=== PATIENT | female | born 1990 | race Caucasian/White ===

== ENCOUNTER 2024-04-24 17:52 | Inpatient (IN) | payer OTHER ==
[~2024-04-24] VITALS: Ht 172.7 cm; Wt 92.5 kg
[~2024-04-24 17:52] MED LIST: IBUP800 PO
[2024-04-24 18:21] LABS: BASOPHILS ABSOLUTE AUTO 0.05 K/mm3 (0.00-0.23); BASOPHILS PERCENT AUTO 0 % (0-2); EOSINOPHILS ABSOLUTE AUTO 0.05 K/mm3 (0.00-0.68); EOSINOPHILS PERCENT AUTO 0 % (0-6); Hematocrit 42.6 % (33.0-51.0); IMMATURE GRAN ABSOLUTE AUTO 0.12 K/mm3 (0.00-0.10); IMMATURE GRAN PERCENT AUTO 1 % (0-1); LYMPHOCYTES ABSOLUTE AUTO 0.74 K/mm3 (0.84-5.20); LYMPHOCYTES PERCENT AUTO 5 % (21-46); MONOCYTES ABSOLUTE AUTO 0.37 K/mm3 (0.16-1.47); MONOCYTES PERCENT AUTO 3 % (4-13); Mean Corpuscular HGB 36.4 pg (26.0-34.0); Mean Corpuscular HGB Conc 35.2 g/dL (31.5-36.5); Mean Corpuscular Volume 103 fL (80-100); Mean Platelet Volume 9.4 fL (9.1-12.4); NEUTROPHILS ABSOLUTE AUTO 13.19 K/mm3 (1.96-9.15); NEUTROPHILS PERCENT AUTO 91 % (41-73); Platelet Count 204 K/mm3 (150-400); RDW Coefficient Variation 12.6 % (11.7-14.2); RDW Standard Deviation 48.2 fL (35.1-46.3); Red Blood Cell Count 4.12 M/mm3 (3.80-5.20); White Blood Cell Count 14.52 K/mm3 (4.00-11.30)
[2024-04-24 18:48] LABS: Albumin, Blood 3.5 g/dL (3.4-5.0); Albumin/Globulin Ratio 0.8 (0.8-1.8); Bilirubin, Total 2.1 mg/dL (0.1-1.0); Bun/Creatinine Ratio 6.3 (12.0-20.0); Calcium, Blood 8.5 mg/dL (8.5-10.1); Creatinine, Blood 0.47 mg/dL (0.40-1.00); Globulin, Blood 4.5 g/dL (2.2-4.0); Potassium, Blood 3.4 mmol/L (3.5-5.5)
[2024-04-24] MEDS ORDERED: CefTRIAXone Sodium 1,000 MG in NS 50 ML IV ONE (21:20)
[2024-04-24] MEDS ORDERED: Azithromycin 500 MG in NS 250 ML IV ONE (21:20)
[2024-04-24] MEDS ORDERED: NS 1,000 ML IV SCH ×2 (21:20→23:20)
[2024-04-24] MEDS ORDERED: Ondansetron HCl 2 MG / ML 2ML Vial IV ONE (21:30)
[2024-04-24] MEDS ORDERED: Ketorolac Tromethamine 30mg Vial IV ONE (21:30)
[2024-04-24] MEDS ORDERED: Acetaminophen 325 MG TABLET PO ONE (23:50)
[2024-04-25] MEDS ORDERED: Acetaminophen 325 MG TABLET PO PRN (01:50)
[2024-04-25] MEDS ORDERED: NS 1,000 ML IV ONE (01:55)
[2024-04-25 02:58] LABS: Source, Urine Clean Catch
[2024-04-25 03:00] LABS: Bilirubin, Urine Neg (Neg); Blood, Urine 1+ (Neg); Glucose Qualitative, Urine Neg (Neg); Ketones, Urine 1+ (Neg); Leukocyte Esterase, Urine Neg (Neg); Nitrite, Urine Neg (Neg); Protein, Urine Neg (Neg); Urobilinogen, Urine NORM (Normal); pH, Urine 6.5 (5.0-8.0)
[2024-04-25 03:06] LABS: Appearance, Urine Clear (Clear); Color, Urine Yellow (P-Yellow)
[2024-04-25 03:07] LABS: Bacteria Not Seen /hpf; Red Blood Cells, Urine 0-2 /hpf (0-2); Squamous Epithelial Cells Rare /hpf (Few); White Blood Cells, Urine Not Seen /hpf (0-5)
[2024-04-25 03:38] LABS: Influenza A, PCR NEGATIVE (NEGATIVE); Influenza B, PCR NEGATIVE (NEGATIVE); Resp Syncytial Virus, PCR NEGATIVE (NEGATIVE); SARS-Cov-2 (COVID-19) PCR, MMC NEGATIVE (NEGATIVE)
[2024-04-25 04:07] LABS: Hematocrit 37.2 % (33.0-51.0); Hemoglobin 12.8 g/dL (11.5-16.0); Mean Corpuscular HGB 36.3 pg (26.0-34.0); Mean Corpuscular HGB Conc 34.4 g/dL (31.5-36.5); Mean Corpuscular Volume 105 fL (80-100); Mean Platelet Volume 10.2 fL (9.1-12.4); Platelet Count 180 K/mm3 (150-400); RDW Coefficient Variation 12.6 % (11.7-14.2); RDW Standard Deviation 49.3 fL (35.1-46.3); Red Blood Cell Count 3.53 M/mm3 (3.80-5.20); White Blood Cell Count 14.39 K/mm3 (4.00-11.30)
[2024-04-25 04:31] LABS: Bun/Creatinine Ratio 10.3 (12.0-20.0); Calcium, Blood 7.4 mg/dL (8.5-10.1); Creatinine, Blood 0.49 mg/dL (0.40-1.00); Potassium, Blood 3.9 mmol/L (3.5-5.5)
[2024-04-25 04:40] LABS: BAND PERCENT MAN 15 % (0-8); BASOPHILS PERCENT MAN 0 % (0-2); EOSINOPHILS PERCENT MAN 0 % (0-6); LYMPHOCYTES ABSOLUTE MAN 0.71 K/mm3 (0.84-5.20); LYMPHOCYTES PERCENT MAN 5 % (21-46); METAMYELOCYTE ABSOLUTE MAN 0.14 K/mm3 (0.00-0.00); METAMYELOCYTE PERCENT MAN 1 % (0-0); MONOCYTES ABSOLUTE MAN 0.14 K/mm3 (0.16-1.47); MONOCYTES PERCENT MAN 1 % (4-13); NEUTROPHILS ABSOLUTE MAN 13.38 K/mm3 (1.96-9.15); SEG NEUTROPHILS PERCENT MAN 78 % (41-73); TOTAL CELLS COUNTED 100
[2024-04-25 08:04] VITALS: BP 157/110
--- NOTE | 2024-04-25 08:06 | NUR ---
0804- PT ARRIVED TO PCU FLOOR IN STABLE CONDITION ON RA AFTER RECEIVING REPORT FROM [facility] SPECIALISTS[facility]URAG MCDONALD.
[2024-04-25] MEDS ORDERED: Lactobacil 2-S.Thermo-Bifido 1 1 Cap PO SCH (09:00)
[2024-04-25] MEDS ORDERED: Enoxaparin 40 MG/0.4 ML SYR SC SCH (09:00)
[2024-04-25] MEDS ORDERED: CefTRIAXone Sodium 1,000 MG in NS 100 ML IV SCH (09:00)
[2024-04-25 11:47] VITALS: BP 147/103
[2024-04-25 15:35] VITALS: BP 160/111
--- NOTE | 2024-04-25 16:20 | NUR ---
0727- THIS RN CALLED DR. DOBSON AND NOTIFIED HER PT HAS POSITIVE BLOOD CULTURES. BLOOD CX SHOW GRAM + COCCI IN CHAINS. AWARE.
[2024-04-25] MEDS ORDERED: Vancomycin HCL 1,000 MG in NS 250 ML IV ONE (16:50)
--- NOTE | 2024-04-25 16:50 | NUR ---
SUMMARY- PT AAOX4 THIS SHIFT. IND IN ROOM. MODERATE APPETITE. PT ON RA ALL SHIFT. NO ACUTE EVENTS. NSR ON TELE. PT MEDICATED WITH TYLENOL FOR MIN-MOD LEFT LOWER RIB PAIN.
[2024-04-25 19:34] VITALS: BP 144/110
[2024-04-26] VITALS (11 sets, daily range): BP systolic 129–169; BP diastolic 96–123
[2024-04-26 04:39] LABS: BASOPHILS ABSOLUTE AUTO 0.05 K/mm3 (0.00-0.23); BASOPHILS PERCENT AUTO 0 % (0-2); EOSINOPHILS ABSOLUTE AUTO 0.09 K/mm3 (0.00-0.68); EOSINOPHILS PERCENT AUTO 1 % (0-6); Hematocrit 38.8 % (33.0-51.0); Hemoglobin 13.5 g/dL (11.5-16.0); IMMATURE GRAN ABSOLUTE AUTO 0.08 K/mm3 (0.00-0.10); IMMATURE GRAN PERCENT AUTO 1 % (0-1); LYMPHOCYTES ABSOLUTE AUTO 1.42 K/mm3 (0.84-5.20); LYMPHOCYTES PERCENT AUTO 11 % (21-46); MONOCYTES ABSOLUTE AUTO 0.38 K/mm3 (0.16-1.47); MONOCYTES PERCENT AUTO 3 % (4-13); Mean Corpuscular HGB 36.8 pg (26.0-34.0); Mean Corpuscular HGB Conc 34.8 g/dL (31.5-36.5); Mean Corpuscular Volume 106 fL (80-100); Mean Platelet Volume 10.7 fL (9.1-12.4); NEUTROPHILS ABSOLUTE AUTO 10.61 K/mm3 (1.96-9.15); NEUTROPHILS PERCENT AUTO 84 % (41-73); Platelet Count 182 K/mm3 (150-400); RDW Coefficient Variation 12.4 % (11.7-14.2); RDW Standard Deviation 48.7 fL (35.1-46.3); Red Blood Cell Count 3.67 M/mm3 (3.80-5.20); White Blood Cell Count 12.63 K/mm3 (4.00-11.30)
--- NOTE | 2024-04-26 05:04 | NUR ---
End of shift summary No acute events overnight. PT slept through majority of shift. Rouses easily to verbal stimule and interacting appropriately. Pt on room air, lung sounds coarse. PT has occassional cough. O2 sats >95% on room air. Hr 80s and NSR via continuous monitor. BP elavated- systolic 140s. PT repositioned self and ambulated to restroom independently w/ steady gait. Call light w/ in reach and pt has been using appropriately. Plan of care ongoing.
[2024-04-26 05:08] LABS: Albumin, Blood 2.5 g/dL (3.4-5.0); Albumin/Globulin Ratio 0.7 (0.8-1.8); Bilirubin, Total 0.8 mg/dL (0.1-1.0); Calcium, Blood 7.6 mg/dL (8.5-10.1); Creatinine, Blood 0.44 mg/dL (0.40-1.00); Globulin, Blood 3.8 g/dL (2.2-4.0); Potassium, Blood 3.5 mmol/L (3.5-5.5); Total Protein, Blood 6.3 g/dL (6.4-8.2)
[2024-04-26] MEDS ORDERED: NS 250 ML IV PRN (05:35)
[2024-04-26] MEDS ORDERED: Azithromycin 500 MG in NS 250 ML IV SCH (06:00)
--- NOTE | 2024-04-26 07:45 | NUR ---
INITIAL ASSESSMENT: Patient is awake lying in bed watching TV. She is alert and oriented x4. She denies pain at this time, she states she just has rib pain when she is coughing-she states this is relieved with Tylenol. HRR, SR in the 80s, she is hypertensive 150s/100s, she states this has been a chronic issue but she doesn't take anything for it at home. LS DIM with EXP wheezing in the upper lobes, she is 96% on RA. She is 1PPD smoker, she denies wanting a nicotine patch at this time. BT+. PPP. AM meds and IV ABX given at this time. She denies other needs, call light in reach.
[2024-04-26] MEDS ORDERED: Nicotine 21 MG PATCH TOP SCH (12:00)
[2024-04-26] MEDS ORDERED: HydroCHLOROthiazide 25 mg Tab PO SCH (12:00)
[2024-04-26] MEDS ORDERED: Potassium Chloride 20 MEQ/15 ML UDC PO ONE (12:55)
[2024-04-26] MEDS ORDERED: Furosemide 10 MG / ML 2ML Vial IV STA (16:24)
--- NOTE | 2024-04-26 17:56 | NUR ---
Summary: Patient has been alert and oriented x4, T/O the shift. No C/O pain. HRR, she has been SR in gthe 70s-80s. She has been hypertensive for the majority of the shift with her systolic pressure 150s-160s and her diastolic 100-120s. She recieved HCTZ and a one time dose of Lasix. LS DIM, coarse with EXP wheezing in the upper lobes, she has been mid to high 90s on RA. She has a coarse PC with sam sputum. BT+. PPP. Another round of BC drawm this shift. She has been IND in the room. No other acute changes this shift. Will report to oncoming RN.
[2024-04-26] MEDS ORDERED: HydrALAZINE HCl 20 MG / ML 1ML Vial IV PRN (18:05)
--- NOTE | 2024-04-26 23:22 | NUR ---
ASSUMED CARE AT 1900 PT AWAKE, SITTING UP IN BED WITH FAMILY AT BEDSIDE. SHE STATES THAT SHE IS FEELING MUCH BETTER TODAY. SHE IS A/O X4 AND APPROPRIATE WITH STAFF AND FAMILY. AFEBRILE. SPO2 >98% ON RA; PRODUCTIVE COUGH NOTED; PT STATES THAT PAIN IN CHEST IS IMPROVING AND DOES NOT NEED TYLENOL TO MANAGE. BP ELEVATED DURING REPORT (169/120) AND PRN HYDRALAZINE GIVEN AND HELPFUL. SHE CAN SAFELY AMBULATE TO BATHROOM. SALINE LOCKED. SEE SHIFT ASSESSMENT FOR FULL ASSESSMENT.
--- NOTE | 2024-04-26 23:30 | NUR ---
TX TO 325 REPORT CALLED TO LEONARD OSBORN.
--- NOTE | 2024-04-27 00:23 | NUR ---
TRANSFER NOTE PT ARRIVED TO FLOOR VIA WC. HANDOFF RECEIVED FROM [facility] PARAEDUCATORANURAG BECK. PT ORIENTED TO UNIT. PERSONAL POSSESSIONS WITH PT.
[2024-04-27 02:44] VITALS: BP 137/115
--- NOTE | 2024-04-27 04:04 | NUR ---
SHIFT SUMMARY TRANSFERED FROM PCU THIS SHIFT. ADMITTED FOR PNEUMONIA/SEPSIS. FULL CODE. IV ANTIB ARE SCHEDULED. SHE IS ON RA, INDEPENDENT IN ROOM. A&O X4. REGULAR DIET. NICOTINE PATCH IN PLACE. PRN APRESOLINE GIVEN FOR HTN. NEWEST BLOOD CULTURES PENDING.
[2024-04-27 04:20] VITALS: BP 139/99
[2024-04-27 06:14] LABS: Hematocrit 39.9 % (33.0-51.0); Mean Corpuscular HGB 36.2 pg (26.0-34.0); Mean Corpuscular HGB Conc 35.1 g/dL (31.5-36.5); Mean Corpuscular Volume 103 fL (80-100); Mean Platelet Volume 10.2 fL (9.1-12.4); Platelet Count 217 K/mm3 (150-400); RDW Standard Deviation 45.7 fL (35.1-46.3); Red Blood Cell Count 3.87 M/mm3 (3.80-5.20); White Blood Cell Count 7.45 K/mm3 (4.00-11.30)
[2024-04-27 06:30] LABS: Bun/Creatinine Ratio 10.8 (12.0-20.0); Calcium, Blood 8.9 mg/dL (8.5-10.1); Creatinine, Blood 0.46 mg/dL (0.40-1.00); Potassium, Blood 3.3 mmol/L (3.5-5.5)
[2024-04-27 07:07] VITALS: BP 145/111
[2024-04-27] MEDS ORDERED: Potassium Chloride 20 MEQ/15 ML UDC PO ONE (07:35)
[2024-04-27] MEDS ORDERED: AmLODIPine Besylate 5 MG Tab PO SCH (09:00)
[2024-04-27] MEDS ORDERED: Furosemide 10 MG / ML 2ML Vial IV SCH (09:00)
[2024-04-27 09:20] VITALS: BP 143/111
[2024-04-27] MEDS ORDERED: HydrALAZINE HCl 25 MG Tab PO SCH (10:00)
[2024-04-27 11:57] VITALS: BP 142/99
[2024-04-27] MEDS ORDERED: AMLO5 PO (14:48)
[2024-04-27] MEDS ORDERED: HYDRA25 PO (14:48)
[2024-04-27] MEDS ORDERED: VISBIOME 112.51 EACH PO (14:49)
[2024-04-27] MEDS ORDERED: CEFU500T30 PO (14:49)
[2024-04-27] MEDS ORDERED: HYDCHL25 PO (14:49)
--- NOTE | 2024-04-27 16:41 | NUR ---
SHIFT ASSESSMENT REPORT RECEIVED VERIFIED PT A/O X4 DOING VERY WELL AND WANTING TO GO HOME. ASSESSMENT DONE, PT HYPERTENSIVE AND WAS MANAGED WITH MEDICATION PRN, MD AWARE. AFTER ANTIBIOTICS FINISHED PT IV INFILTRATED AND THEN DCED BY , PT TO BE DISCHARGED TODAY. AWAITING PT DC, PT SLEEPING. INSTRUCTIONS GIVEN TO PT PT WHEELED DOWN VIA WHEEL CHAIR
== END 2024-04-27 15:08 | disposition home or self-care (01) | DRG 871 ==
LOC: ER 17:52 → ERHOLD 17:53 → PCU 04-25 07:58 → MEDS 04-26 23:37
PROVIDERS: Family Medicine; Internal Medicine; Student in an Organized Health Care Education/Training Program; ADMIT Internal Medicine
DX: A40.3 Sepsis due to Streptococcus pneumoniae (principal); J13 Pneumonia due to Streptococcus pneumoniae; R65.20 Severe sepsis without septic shock; E87.1 Hypo-osmolality and hyponatremia; E87.20 Acidosis, unspecified; R74.01 Elevation of levels of liver transaminase levels; F17.210 Nicotine dependence, cigarettes, uncomplicated; E87.6 Hypokalemia; R79.89 Other specified abnormal findings of blood chemistry; Z71.6 Tobacco abuse counseling; Z79.899 Other long term (current) drug therapy
CPT/HCPCS: 0241U; 36415; 71046; 71260; 80048; 80053; 81001; 83605; 83880; 84484; 85025; 85027; 85379; 87040; 87186; 93005; 93010; 93306; 96361; 96365-59; 96366; 96367-59; 96372; 96375-59; 99285-25; A9270; G0378; J0360; J0456; J0696; J1650; J1885; J1940; J2405; J3370; J7030; J7050; Q9967